=== PATIENT | female | born 1975 | race Caucasian/White ===

== ENCOUNTER 2016-04-29 08:55 | Emergency (ER) ==
[2016-04-29 09:11] LABS: URINE SOURCE CLEAN CATCH
[2016-04-29 09:17] LABS: BILIRUBIN URINE NEGATIVE (NEGATIVE); BLOOD URINE 4+ (NEGATIVE); CLARITY CLEAR (CLEAR); COLOR YELLOW; GLUCOSE URINE NEGATIVE (NEGATIVE); LEUKOCYTES URINE 2+ (NEGATIVE); NITRITE URINE NEGATIVE (NEGATIVE); PH URINE 6.5; PROTEIN URINE 2+(100 mg/dL) mg/dL (NEGATIVE); UROBILINOGEN URINE NORMAL
[2016-04-29 09:39] LABS: URINE CULTURE PL NEEDED? YES; URINE EPITHELIAL CELLS >10 /HPF (<10); URINE RBC TNTC /HPF (<10); URINE WBC TNTC /HPF (<10)
[2016-04-29] MEDS ORDERED: ROCEPHIN IM ONE (10:10)
[2016-04-29] MEDS ORDERED: XYLOCAINE-MPF 1% INJ ONE (10:10)
[2016-04-29] MEDS ORDERED: NORCO-7.5 PO ONE (10:11)
[2016-04-29] MEDS ORDERED: ZOFRAN ODT PO ONE (10:11)
--- NOTE | 2016-04-29 10:14 | PROVIDER DOCUMENTATION ---
HPI-Musculoskeletal Pain/Inj - GENERAL Source: patient, family - HX OF PRESENT ILLNESS-MUSKULOSKELTAL Quality of Pain: reports: aching, burning Severity in ED: severe Onset/Duration: other (pt states it started when she started her MS infusion) Timing: still present Any recent injury?: No Locality of Occurance: Home Similar Symptoms Previously?: No Recently seen or treated by another doctor?: No - FALL INJURY Location of Pain/Injury: reports: abdomen, back Pain Radiation: reports: no radiation - BACK & NECK PAIN/INJURY Back/Neck Pain Location: denies: C-spine, T-spine, lumbar spine, sacrum, coccyx Back/Neck Pain Radiation: denies: headache, shoulders, arm(s), Buttocks Context / Method of Injury: denies: lifting, motor vehicle crash, overuse History of Chronic Neck or Back Pain?: No - TRUNK INJURY Location of Injury(s)/Pain: reports: other (below her ribs) - UPPER EXTREMITY PAIN/INJURY Associated Symptoms: denies: sensory/motor loss, tingling in upper ext, weakness in upper ext <Constance Roberts - Last Filed: 04/29/16 10:09> <Deborah Hickey - Last Filed: 04/29/16 10:31> - GENERAL Chief Complaint: Back Pain Stated Complaint: UTI SX Time Seen by Provider: 04/29/16 10:03 - HX OF PRESENT ILLNESS-MUSKULOSKELTAL Nature of Presenting Problem: pt is a 41 y/o present to the ER with Back pain and pain in the left side of her abdomen. Pt states she has a hx of MS started an infusion [id number] ago. pt states her back pain is in both sides of her lower back. Pt states she had a fever yesterday that ran 102, and has some nausea yesterday as well. pt denies hematuria, vomiting or diarrhea .pt states she was diagnosed with emphysema last month. pt also states it is hard to tell if she has burning when she pee's because it feels numb from her MS. (Constance Roberts) Review of Systems - Adult - REVIEW OF SYSTEMS - ADULT Constitutional: reports: no symptoms reported Eyes: reports: no symptoms reported Ears, Nose, Mouth & Throat: reports: no symptoms reported Cardiovascular: reports: no symptoms reported Respiratory: reports: no symptoms reported Gastrointestinal: reports: no symptoms reported Genitourinary: denies: discharge, hematuria, incontinence, urgency Musculoskeletal: reports: back pain. denies: bone pain, frequent leg cramps, joint swelling Integumentary: denies: hives, hair loss, itching Neurological: reports: no symptoms reported Psychiatric: reports: no symptoms reported Endocrine: reports: no symptoms reported Hematologic/Lymphatic: reports: no symptoms reported Allergic/Immunologic: reports: no symptoms reported All Other Systems: Reviewed and Negative <Constance Roberts - Last Filed: 04/29/16 10:09> Past History - Adult - PAST MEDICAL HISTORY-ADULT Review of Records: reports: Nursing Assessment Review Major Childhood Illnesses: reports: denies history Cardiovascular: reports: denies history Respiratory: reports: denies history Gastrointestinal: reports: denies history Obstetrical/Gynecological: reports: denies history Genitourinary: reports: kidney stones Musculoskeletal: reports: chronic pain, other Neurological: reports: Multiple Sclerosis, other (SLE) Psychiatric: reports: denies history Endocrine/Immune: reports: denies history Other Conditions: reports: denies history - PRIOR SURGERIES/PROCEDURES Surgical/Procedure History: reports: cholecystectomy, hysterectomy, , back/neck (neck ) - PRIOR HOSPITALIZATIONS Prior Hospitalizations: reports: none - IMMUNIZATION STATUS Childhood Immunizations: See Nurse Assessment Flu Vaccine: See Nurse Assessment - FAMILY HISTORY Family History: reviewed, not pertinent - SOCIAL HISTORY Smoking: cigarettes, less than 1 pack/day Provider spent 3-5 mins advising pt. on dangers of tobacco.: Discussed manners to quit use, and f/u contacts for add'l counseling. Substance Use: none/never Alcohol Use Frequency: never <Constance Roberts - Last Filed: 04/29/16 10:09> Physical Exam-Injury Related - Physical Exam-Injury Related Initial Vital Signs Reviewed: Yes General Appearance: appears well, alert, mild distress Eyes: PERRL/EOMI, pink conjunctivae Head, Ears, Nose, Mouth & Throat: moist mucous membranes Neck: non-tender, full range of motion Respiratory: chest non-tender, lungs clear, normal breath sounds, no pleuratic chest pain, no respiratory distress, no accessory muscle use Cardiovascular: normal peripheral pulses, regular rate, rhythm Abdominal Exam: soft, tenderness (LUQ) Back Exam: CVA tenderness, other (bilateral lower back rhys n) Integumentary: normal color, warm/dry Neurologic: grossly normal, no motor/sensory deficits Psych/Mental Status: normal mood/affect, normal thought content, normal thought process, oriented x 3 - Glascow Coma Score Best Eye Response (Curtice): (4) open spontaneously Best Verbal Response (Curtice): (5) oriented Best Motor Response (Curtice): (6) obeys commands Kathie Total: 15 <Constance Roberts - Last Filed: 04/29/16 10:09> Progress <Constance Roberts - Last Filed: 04/29/16 10:09> <Deborah Hickey - Last Filed: 04/29/16 10:31> - PLAN OF CARE/RESULTS Progress/Plan/Lab Results: Laboratory Tests 04/29/16 09:06 Urine Source CLEAN CATCH Urine Color YELLOW Urine Clarity CLEAR Urine pH 6.5 Ur Specific [place] 1.010 Urine Protein 2+(100 mg/dL) A Urine Ketones NEGATIVE Urine Blood 4+ Urine Nitrite NEGATIVE Urine Bilirubin NEGATIVE Urine Urobilinogen NORMAL Urine Microscopic RBC TNTC A Urine WBC 2+ A Urine Microscopic WBC TNTC A Ur Epithelial Cells >10 A Urine Bacteria 4+ Urine Glucose NEGATIVE Orders Category Date Time Status FLAT/UPRIGHT ABD/1 VIEW CHEST [RAD] Stat Exams 04/29/16 10:[address] W/POSS RFLX CULT [URINALYSIS] Stat Lab 04/29/16 09:06 Completed URINE CULTURE [RM] Routine Lab 04/29/16 09:40 Ordered CefTRIAXONE [Rocephin] Med 04/29/16 10:10 Discontinued 1 gm IM NOW ONE Hydrocodone/APAP 7.5 mg/325 mg [[place]-7.5] Med 04/29/16 10:11 Discontinued 1 each PO NOW ONE Lidocaine 1% Pf [Xylocaine-Mpf 1%] Med 04/29/16 10:10 Discontinued 5 ml INJ NOW ONE Ondansetron Odt [Zofran Odt] Med 04/29/16 10:11 Discontinued 4 mg PO NOW ONE Vital Signs - 24 hr 04/29/16 08:59 Temperature 99.9 F H Pulse Rate 112 H Respiratory 18 Rate Blood Pressure 112/65 O2 Sat by Pulse 99 Oximetry (Constance Roberts) Discussed medication use and f/u with pt. Pt states she needs an inhaler due to her new diagnosis of emphysema. (Deborah Hickey) Departure <Constance Roberts - Last Filed: 04/29/16 10:09> - Departure Time of Disposition Order: 10:27 Certified Medical Emergency: Emergent <Deborah Hickey - Last Filed: 04/29/16 10:31> - Departure DIAGNOSIS: Medication requested Urinary tract infection Qualifiers: Urinary tract infection type: acute cystitis Hematuria presence: with hematuria Qualified Code(s): N30.01 - Acute cystitis with hematuria Constipation Qualifiers: Constipation type: unspecified constipation type Qualified Code(s): K59.00 - Constipation, unspecified Disposition: HOME 01 Condition: Stable Additional Instructions: Take medications as directed. Follow up with PCP in 3-5 days for recheck. Drink plenty of fluids. ED Follow Up Instructions: You have been treated by a care provider in the Emergency Department. These instructions are being provided to you so you can have an understanding of how to care for yourself upon discharge. Upon discharge from the Emergency Department, you are responsible for making arrangements for follow-up care by a physician of your choice. Take all prescribed medications as directed. Return to the Emergency Department immediately for any new or worsening symptoms. You may call the Physician Referral phone number at [phone] to obtain a list of Physicians who are taking new patients. Prescriptions: Ciprofloxacin HCl [Cipro] 500 mg PO BID #14 tablet Docusate Sodium [Colace] 100 mg PO BID PRN PRN #20 capsule PRN Reason: Constipation Phenazopyridine HCl [Pyridium] 100 mg PO TID #6 tablet Albuterol Sulfate Inhaler [Ventolin Hfa] 2 puff INH Q6H PRN PRN #1 inhaler PRN Reason: Shortness Of Breath Referrals: Tavares Mcfadden MD [Primary Care Provider] - Attestation - Scribe Verification/Attestation Scribe:: Constance Roberts Acting as Scribe for:: Deborah Hickey Scribe documention review:: This chart was documented by a scribe and accurately reflects the service the provider performed and the decisions made by the provider. <Constance Roberts - Last Filed: 04/29/16 10:09> Physician Attestation
--- NOTE | 2016-04-29 10:34 | Diag Imaging Result Document ---
PROCEDURE NAME: FLAT/UPRIGHT ABD/1 VIEW CHEST - 04/29/2016 FLAT AND UPRIGHT AND CHEST, THREE VIEWS: COMPARISON: The chest is compared to 03/16/2016. FINDINGS: The lungs are well expanded. No pneumonia. No cardiomegaly. There has been prior surgery to the lower neck. No free air beneath the diaphragm. The gallbladder has been removed. There is stool throughout the colon. The bowel loops are not dilated. No organomegaly. Mild scoliosis. No abnormal abdominal calcifications. There are several tiny pelvic calcifications believed to be phleboliths. IMPRESSION: Constipation.
[2016-04-29 10:42] VITALS: BP 102/73
== END 2016-04-29 10:39 | disposition home or self-care (01) ==
LOC: P.ED 08:55
DX: N30.01 Acute cystitis with hematuria (principal); K59.00 Constipation, unspecified; M54.5 Low back pain; R10.9 Unspecified abdominal pain; R50.9 Fever, unspecified; R11.0 Nausea; R10.812 Left upper quadrant abdominal tenderness; G89.29 Other chronic pain; G35 Multiple sclerosis; F17.210 Nicotine dependence, cigarettes, uncomplicated; Z76.0 Encounter for issue of repeat prescription; Z71.6 Tobacco abuse counseling; Z87.442 Personal history of urinary calculi
CPT/HCPCS: 74022; 81001; 87077; 87088; 87186; 96372; J0696